=== PATIENT | female | born 1980 | race Caucasian/White ===

== ENCOUNTER 2018-06-23 09:16 | Emergency (ER) | payer BC ==
[2018-06-23] MEDS ORDERED: Pantoprazole 40 MG VIAL ONE (10:48)
[2018-06-23] MEDS ORDERED: Prochlorperazine 10 MG/2 ML VIAL ONE (10:48)
[2018-06-23] MEDS ORDERED: Sodium Chloride 0.9% 2,000 ML ONE (10:48)
[2018-06-23 11:14] LABS: BHCG - Serum Negative (NEGATIVE); Pregs Control Background? CLEAR/WHITE (CLR/WHITE); Pregs Control Bar Appear? YES (CONTROL BAR)
[2018-06-23] MEDS ORDERED: Dexamethasone 10 MG/ML VIAL ONE (11:54)
[2018-06-23] MEDS ORDERED: Meclizine HCl 25 MG TAB ONE (11:54)
== END 2018-06-23 13:10 | disposition home or self-care (01) ==
LOC: MADERS 09:16
DX: H93.3X9 Disorders of unspecified acoustic nerve (principal)
CPT/HCPCS: 84703; 87804; 96361; 96374; 96375; C9113; J0780; J1100; J7050

== ENCOUNTER 2022-06-27 08:14 | Outpatient (CLI) | payer BC | END 2022-06-27 08:15 | disposition home or self-care (01) | LOC: MADRAD 08:14 | PROVIDERS: ATTEND Registered Nurse | DX: M25.511 Pain in right shoulder (principal); M19.011 Primary osteoarthritis, right shoulder ==